=== PATIENT | male | born 1950 | race Caucasian/White ===

== ENCOUNTER 2024-03-31 15:23 | Emergency (ER) | payer SELFPAY ==
[~2024-03-31 15:23] MED LIST: NS 1,000 ML IV ONE
[2024-05-04 05:31] LABS: ALBUMIN 3.5 g/dL (3.4-4.8); ALT/SGPT 15 U/L (0-55); AST-SGOT 22 U/L (5-34); BASO # 0.05 K/mm3 (0.02-0.10); CALCIUM 9.3 mg/dL (8.3-10.5); CARBON DIOXIDE 20 mmol/L (23-31); EOS # 0.04 K/mm3 (0.04-0.40); EOS % 0.4 % (0.0-4.0); GLUCOSE 122 mg/dL (75-110); HEMATOCRIT 41.1 % (42.0-52.0); LYMPH# 0.93 K/mm3 (1.50-4.00); MEAN CELL VOLUME 93 fl (78-100); MEAN CORPUSCULAR HEMOGLOBIN 32 pg (27-31); MEAN CORPUSCULAR HGB CONC 34 g/dL (33-37); MONO # 0.58 K/mm3 (0.20-0.80); PLATELET COUNT 225 K/mm3 (130-400); RED BLOOD COUNT 4.41 M/mm3 (4.20-5.60); RED CELL DISTRIBUTION WIDTH 12.3 % (11.5-14.5); SODIUM 139 mmol/L (136-145); TOTAL BILIRUBIN 0.5 mg/dL (0.2-1.2); TOTAL PROTEIN 5.7 g/dL (6.2-8.1); TROPONIN-I < 0.030 ng/mL (0.00-0.033); WHITE BLOOD COUNT 9.8 K/mm3 (4.8-10.8)
== END 2024-03-31 18:15 | disposition home or self-care (01) ==
LOC: ED 15:23
PROVIDERS: Family Medicine
DX: I95.1 Orthostatic hypotension (principal); N18.9 Chronic kidney disease, unspecified
CPT/HCPCS: J7030